=== PATIENT | female | born 2000 | race Asian ===

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

== ENCOUNTER 2022-03-18 00:10 | Emergency (ER) | payer BC ==
[2022-03-18 00:26] VITALS: BP 112/71; PULSE 99; TEMP 99.1; BMI 27.1
[2022-03-18 03:29] LABS: EPI CELLS >36 /uL (0-25.1); HCG,QUALITATIVE URINE Negative; HYALINE CASTS 33 /uL (0-3.1); PH,URINE 5.5 (5.0-8.0); URINE APPEARANCE CLOUDY; URINE BACTERIA 6475 /uL (0-1359); URINE BILIRUBIN 1+ (NEGATIVE); URINE COLOR DK YELLOW; URINE GLUCOSE (UA) NEGATIVE (NEGATIVE); URINE KETONE TRACE (NEGATIVE); URINE LEUK ESTERASE 1+ (NEGATIVE); URINE NITRITE NEGATIVE (NEGATIVE); URINE PROTEIN 1+ (NEGATIVE); URINE RBC 35 /uL (0-23.9); URINE UROBILINOGEN 0.2 mg/dL (0.2-1.0); URINE WBC 527 /uL (0-25.8)
[2022-03-18] MEDS ORDERED: KETOROLAC TROMETHAMINE 30 MG/1 ML VIAL IM ONE (03:41)
[2022-03-18] MEDS ORDERED: DEXAMETHASONE SOD PHOSPHATE 10 MG/1 ML VIAL IM ONE (03:42)
[2022-03-18] MEDS ORDERED: DEXAMETHASONE SOD PHOSPHATE 10 MG/1 ML VIAL ONE (04:06)
[2022-03-18] MEDS ORDERED: KETOROLAC TROMETHAMINE 30 MG/1 ML VIAL ONE (04:07)
== END 2022-03-18 05:17 | disposition home or self-care (01) ==
LOC: JER 00:10
PROC: 3E0333Z Introduction of Anti-inflammatory into Peripheral Vein, Percutaneous Approach (ICD-10-PCS; principal; 2022-03-18)
PROC: 3E0333Z Introduction of Anti-inflammatory into Peripheral Vein, Percutaneous Approach (ICD-10-PCS; 2022-03-18)
DX: U07.1 COVID-19 (principal); J02.9 Acute pharyngitis, unspecified; R30.0 Dysuria
CPT/HCPCS: 81003; 84703; 87086; 87651; 99284-25; J1100

== ENCOUNTER 2023-07-18 01:03 | Emergency (ER) | payer BC ==
[2023-07-18 01:24] VITALS: BP 132/85; PULSE 102; RESP 18; TEMP 99.4; BMI 25.6
[2023-07-18] MEDS ORDERED: IBUPROFEN 400 MG TABLET (FP) PO ONE ×2 (02:01→02:10)
[2023-07-18] MEDS ORDERED: ACETAMINOPHEN 325 MG TABLET (FP) PO ONE (02:01)
[2023-07-18] MEDS ORDERED: DEXAMETHASONE 4 MG TABLET (FP) PO ONE (02:03)
[2023-07-18] MEDS ORDERED: ACETAMINOPHEN 325 MG TABLET (FP) ONE (02:10)
[2023-07-18] MEDS ORDERED: DEXAMETHASONE 4 MG TABLET (FP) ONE (02:11)
== END 2023-07-18 02:50 | disposition home or self-care (01) ==
LOC: JER 01:03
DX: R50.9 Fever, unspecified (principal); R05.9 Cough, unspecified; R07.0 Pain in throat; Z20.822 Contact with and (suspected) exposure to COVID-19
CPT/HCPCS: 0241U-QW; 87651; 99283-25